=== PATIENT | female | born 1935 | race Native Hawaiian/Other Pacific Islander ===

== ENCOUNTER 2016-09-22 11:46 | Inpatient (IN) | payer MEDICARE, OTHER ==
[2016-09-22] MEDS ORDERED: Sodium Chloride 0.9% 500 ML IV ONE ×2 (12:13→14:12)
--- NOTE | 2016-09-22 12:16 | C.PDOC ---
History Of Present Illness 81 y/o female with PMHx of HTN sent to the emergency department by PMD, Dr. Gus Veliz, for evaluation of n/v/d, diffuse abdominal pain, and generalized weakness for the past 3 days. Patient denies fever/chills, chest pain, shortness of breath, dysuria/hematuria, back pain. Time Seen by Provider: 09/22/16 12:01 Chief Complaint (Nursing): Abdominal Pain History Per: Patient History/Exam Limitations: no limitations Onset/Duration Of Symptoms: Days (3) Current Symptoms Are (Timing): Still Present Location Of Pain/Discomfort: Diffuse Radiation Of Pain To:: None Quality Of Discomfort: "Pain" Associated Symptoms: Nausea, Vomiting, Diarrhea. denies: Fever, Chills, Loss Of Appetite, Back Pain, Chest Pain, Constipation, Urinary Symptoms Exacerbating Factors: None Alleviating Factors: None Additional History Per: Patient Abnormal Vaginal Bleeding: No Past Medical History Reviewed: Historical Data, Nursing Documentation, Vital Signs Vital Signs: Last Vital Signs Temp 97.4 F L 09/26/16 15:00 Pulse 89 09/26/16 15:00 Resp 20 09/26/16 15:00 BP 162/89 H 09/26/16 15:00 Pulse Ox 96 10/03/16 16:29 - Medical History PMH: HTN Family History: States: No Known Family Hx - Social History Hx Alcohol Use: No Hx Substance Use: No - Immunization History Hx Tetanus Toxoid Vaccination: No Hx Influenza Vaccination: No Hx Pneumococcal Vaccination: No Review Of Systems Except As Marked, All Systems Reviewed And Found Negative. Constitutional: Negative for: Fever, Chills Cardiovascular: Negative for: Chest Pain, Palpitations Respiratory: Negative for: Cough, Shortness of Breath Gastrointestinal: Positive for: Nausea, Vomiting, Abdominal Pain, Diarrhea. Negative for: Constipation, Hematochezia, Hematemesis Genitourinary: Negative for: Dysuria, Frequency, Hematuria Musculoskeletal: Negative for: Back Pain Physical Exam - Physical Exam Appears: Non-toxic, No Acute Distress, Other (awake, alert, fatigued appearing) Skin: Normal Color, Warm, Dry Head: Normacephalic Eye(s): bilateral: Normal Inspection Oral Mucosa: Dry Neck: Supple Chest: Symmetrical, No Tenderness Cardiovascular: Rhythm Regular Respiratory: Normal Breath Sounds, No Rales, No Rhonchi, No Wheezing Gastrointestinal/Abdominal: Bowel Sounds, Soft, Tenderness (diffuse TTP), No Guarding, No Rebound, Other (obese abdomen. (-)Viera's, (-)Mcburney's) Extremity: Normal ROM Neurological/Psych: Oriented x3 ED Course And Treatment - Laboratory Results Result Diagrams: 09/24/16 06:35 09/25/16 08:14 O2 Sat by Pulse Oximetry: 96 (on RA) Pulse Ox Interpretation: Normal - CT Scan/US Abd Pelvis CT Other Rad Studies (CT/US): Read By Radiologist, Radiology Report Reviewed CT/US Interpretation: Findings: Scattered areas of atelectasis and consolidation in both lungs. Coronary calcifications. No pleural or pericardial effusion. Prominent liver with heterogeneous attenuation. Within the periphery of the right hepatic lobe there is a 2.1 centimeter low- attenuation lesion demonstrating a Hounsfield unit attenuation of -19 suggestive for a possible fat containing lesion. Correlation with multiphasic CT or MR may be helpful for further evaluation if clinically indicated. Gallbladder is preserved. Diminutive spleen. Nodularity of the adrenal glands. Pancreas is preserved. Small hiatal hernia. Mild nonspecific thickening of the proximal stomach. Right kidney: Midpole partially exophytic hypodensity measuring 1.5 centimeters demonstrating a Hounsfield unit attenuation of 26, indeterminate. Left Kidney: No calculi or hydronephrosis. Contrast in the collecting system. Distended urinary bladder. At the left lateral aspect of the urinary bladder there is a lobulated 3.4 centimeter low- attenuation lesion which appears contiguous with the left adnexa suggestive for a left adnexal cyst. Evaluation of the lower abdominal bowel demonstrates an underdistended and or mildly thickened descending colon. Mild thickening of the distal rectum and sigmoid colon, nonspecific. Appendix is within normal limits. Calcification and plaque within the aorta. Few shotty periaortic and mesenteric lymph nodes. Few shotty mesenteric lymph nodes. Degenerative changes in the spine. 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 Impression: 1. Mild underdistention and or mild thickening of the descending colon, distal sigmoid colon, and rectum. Clinical correlation. 2. Within the periphery of the right hepatic lobe there is a 2.1 centimeter low- attenuation lesion demonstrating a Hounsfield unit attenuation of -19 suggestive for a possible fat containing lesion. Correlation with multiphasic CT or MR may be helpful for further evaluation if clinically indicated. 3. Small hiatal hernia. Mild nonspecific thickening of the proximal stomach. 4. 3.4 centimeter left adnexal cyst. Additional findings as above. Progress Note: Blood work, CT abd/pelvis, UA ordered and reviewed. Patient given IV NS bolus. Na noted to be 111, after IV fluids - improving at 113. Discussed patient with Dr. Smith at 2pm, he recommends IV fluids and get serum osm, will follow lab but at this time since patient had no seizures, is awake and alert patient can go to telemetry. 3:35pm- CT scan not officially read, but appears to have very distended bladder. Bladder scan ordered and if retaining, will insert guillory catheter. 4:20pm- Dr. Gus Veliz agrees with admission, would like patient to ICU. Dr. Smith accepts for ICU admission - CT abd/pelvis and serum osm still pending. - Physician Consult Information Physician Contacted: Scott Veliz Critical Care Time - Critical Care Note Total Time (in mins): 40 Documented critical care: time excludes all time spent performing seperately billable procedures. Disposition - Disposition Disposition Time: 16:20 Condition: FAIR - Clinical Impression Clinical Impression: Hyponatremia, Hypokalemia, Dehydration, Nausea & vomiting, Diarrhea - Scribe Statement The provider has reviewed the documentation as recorded by the Emilia Veliz Provider Attestation: All medical record entries made by the Emilia were at my direction and personally dictated by me. I have reviewed the chart and agree that the record accurately reflects my personal performance of the history, physical exam, medical decision making, and the department course for this patient. I have also personally directed, reviewed, and agree with the discharge instructions and disposition. Decision To Admit - Pt Status Changed To: Hospital Disposition Of: Inpatient - Admit Certification Admit to Inpatient:: After my assessment, the patient will require hospitalization for at least two midnights. This is because of the severity of symptoms shown, intensity of services needed, and/or the medical risk in this patient being treated as an outpatient. - InPatient: Physician Admission Certification:: see notes - . Bed Request Type: ICU Admitting Physician: Scott Veliz Patient Diagnosis: Hyponatremia, Hypokalemia, Dehydration, Nausea & vomiting, Diarrhea
[2016-09-22] MEDS ORDERED: Sodium Chloride 0.9% 1,000 ML ONE ×2 (12:21→14:28)
[2016-09-22] MEDS ORDERED: Iohexol 240 (50 ml) PO STA (12:37)
[2016-09-22] MEDS ORDERED: Sodium Chloride 0.9% 1,000 ML IV ONE (12:37)
[2016-09-22 12:42] LABS: BASO % 0.1 % (0.0-2.0); EOS % 0.1 % (0.0-4.0); HEMATOCRIT 34.1 % (34.0-47.0); LYMPH # 1.3 K/uL (1.0-4.3); LYMPH % 11.1 % (20.0-40.0); MEAN PLATELET VOLUME 7.3 fL (7.2-11.7); MONO # 0.6 K/uL (0.0-0.8); MONO % 5.2 % (0.0-10.0); RED CELL DISTRIBUTION WIDTH 12.1 % (11.5-14.5); WHITE BLOOD COUNT 11.5 K/uL (4.8-10.8)
[2016-09-22 12:48] LABS: CHLORIDE 67 mmol/L (98-107); POTASSIUM 2.7 mmol/L (3.6-5.2)
[2016-09-22 12:50] LABS: BILIRUBIN,TOTAL 1.1 mg/dL (0.2-1.3); CARBON DIOXIDE 29 mmol/L (22-30); GFR AFRICAN-AMERICAN > 60
[2016-09-22 12:51] LABS: ALB/GLOB RATIO 1.5 (1.0-2.1); ALKALINE PHOSPHATASE 66 U/L (38-126); ALT/SGPT 48 U/L (9-52); AST/SGOT 85 U/L (14-36); BLOOD UREA NITROGEN 8 mg/dL (7-17); CALCIUM 8.7 mg/dl (8.6-10.4); GLUCOSE,RANDOM 155 mg/dL (65-105); TOTAL PROTEIN 7.8 g/dL (6.3-8.3)
[2016-09-22 13:01] LABS: SODIUM 111 mmol/L (132-148)
[2016-09-22 13:02] LABS: MEAN CELL VOLUME 84.5 fL (81.0-99.0); MEAN CORPUSCULAR HEMOGLOBIN 30.4 pg (27.0-31.0)
[2016-09-22] MEDS ORDERED: Iohexol 240 (50 ml) ONE (13:20)
--- NOTE | 2016-09-22 13:38 | RAD ---
PROCEDURE: CHEST RADIOGRAPH, 1 VIEW HISTORY: admission COMPARISON: None available. FINDINGS: LUNGS: Mild venous congestion. Scattered nodular densities in the upper to mid lung zones which may represent nodules and or granulomas. Correlation with prior study if available may be helpful. Minimal patchy bibasilar airspace opacities; left greater than right. PLEURA: No pneumothorax or pleural fluid seen. CARDIOVASCULAR: Tortuous aorta. OSSEOUS STRUCTURES: Degenerative changes in the spine and shoulders. VISUALIZED UPPER ABDOMEN: Normal. OTHER FINDINGS: None. IMPRESSION: Mild venous congestion. Scattered nodular densities in the upper to mid lung zones which may represent nodules and or granulomas. Correlation with prior study if available may be helpful. Minimal patchy bibasilar airspace opacities; left greater than right.
[2016-09-22 13:48] LABS: CHLORIDE 73 mmol/L (98-107)
[2016-09-22 13:51] LABS: CARBON DIOXIDE 28 mmol/L (22-30); GFR AFRICAN-AMERICAN > 60; POTASSIUM 2.3 mmol/L (3.6-5.2); SODIUM 113 mmol/L (132-148)
[2016-09-22 13:52] LABS: BLOOD UREA NITROGEN 6 mg/dL (7-17); CALCIUM 7.7 mg/dl (8.6-10.4); GLUCOSE,RANDOM 122 mg/dL (65-105)
[2016-09-22 14:09] LABS: RBC URINE 3 /hpf (0-3); URINE BACTERIA RARE (<OCC); URINE BILIRUBIN NEGATIVE (NEGATIVE); URINE BLOOD 1+ (NEGATIVE); URINE COLOR Straw (YELLOW); URINE GLUCOSE (UA) NORMAL (Normal); URINE KETONE TRACE mg/dL (NEGATIVE); URINE LEUKOCYTE ESTERASE 3+ Leu/uL (Negative); URINE PROTEIN NEGATIVE (NEGATIVE); URINE UROBILINOGEN NORMAL mg/dL (0.2-1.0); WBC URINE 46 /hpf (0-5)
[2016-09-22] MEDS ORDERED: Potassium Chloride 20 mEq ER Tab PO STA (14:12)
[2016-09-22] MEDS ORDERED: Potassium Chloride 20 mEq ER Tab PO ONE ×2 (14:28→18:30)
[2016-09-22] MEDS ORDERED: Potassium Chloride 10 mEq ER Tab PO ONE (14:42)
[2016-09-22] MEDS ORDERED: Iodixanol 320 MG/ML 100 ML BOTTLE IV ONE (15:15)
--- NOTE | 2016-09-22 17:19 | CT ---
CT abdomen and pelvis History: Diffuse abdominal pain. Comparison: None available. Technique: Multiple contiguous axial images were performed through the abdomen and pelvis with the use of intravenous contrast. Subsequently, sagittal and coronal reformatted images were obtained. This CT exam was performed using one or more of the following dose reduction techniques: Automated exposure control, adjustment of the mA and/or kV according to patient size, and/or use of iterative reconstruction technique. Findings: Scattered areas of atelectasis and consolidation in both lungs. Coronary calcifications. No pleural or pericardial effusion. Prominent liver with heterogeneous attenuation. Within the periphery of the right hepatic lobe there is a 2.1 centimeter low-attenuation lesion demonstrating a Hounsfield unit attenuation of -19 suggestive for a possible fat containing lesion. Correlation with multiphasic CT or MR may be helpful for further evaluation if clinically indicated. Gallbladder is preserved. Diminutive spleen. Nodularity of the adrenal glands. Pancreas is preserved. Small hiatal hernia. Mild nonspecific thickening of the proximal stomach. Right kidney: Midpole partially exophytic hypodensity measuring 1.5 centimeters demonstrating a Hounsfield unit attenuation of 26, indeterminate. Left Kidney: No calculi or hydronephrosis. Contrast in the collecting system. Distended urinary bladder. At the left lateral aspect of the urinary bladder there is a lobulated 3.4 centimeter low-attenuation lesion which appears contiguous with the left adnexa suggestive for a left adnexal cyst. Evaluation of the lower abdominal bowel demonstrates an underdistended and or mildly thickened descending colon. Mild thickening of the distal rectum and sigmoid colon, nonspecific. Appendix is within normal limits. Calcification and plaque within the aorta. Few shotty periaortic and mesenteric lymph nodes. Few shotty mesenteric lymph nodes. Degenerative changes in the spine. 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 Impression: 1. Mild underdistention and or mild thickening of the descending colon, distal sigmoid colon, and rectum. Clinical correlation. 2. Within the periphery of the right hepatic lobe there is a 2.1 centimeter low-attenuation lesion demonstrating a Hounsfield unit attenuation of -19 suggestive for a possible fat containing lesion. Correlation with multiphasic CT or MR may be helpful for further evaluation if clinically indicated. 3. Small hiatal hernia. Mild nonspecific thickening of the proximal stomach. 4. 3.4 centimeter left adnexal cyst. Additional findings as above.
--- NOTE | 2016-09-22 18:26 | CP.PCM.CON ---
History of Present Illness - History of Present Illness History of Present Illness: Reason for consultation: Hyponatremia and hypokalemia 81-year-old female with history of hypertension presented to the emergency room complaining of nausea, vomiting, diarrhea and diffuse abdominal pain associated with generalized weakness for the past 3 days. Patient went to see PMD will instructed patient to go to emergency room for admission. In the emergency room patient found to be hyponatremic and hypokalemic. Review of Systems - Review of Systems All systems: reviewed and no additional remarkable complaints except ( Generalized weakness, nausea or vomiting diarrhea and abdominal pain) Past Patient History - Infectious Disease Hx of Infectious Diseases: None - Past Social History Smoking Status: Never Smoked - CARDIAC Hx Hypertension: Yes - PSYCHIATRIC Hx Substance Use: No - SURGICAL HISTORY Hx Surgeries: No - ANESTHESIA Hx Anesthesia: No Meds Allergies/Adverse Reactions: Allergies Allergy/AdvReac Type Severity Reaction Status Date / Time No Known Allergies Allergy Verified 09/22/16 12:00 - Medications Medications: Current Medications Potassium Chloride (K-Dur 20 Meq Er Tab) 40 meq PO ONCE ONE Stop: 09/22/16 18:31 Physical Exam - Head Exam Head Exam: ATRAUMATIC, NORMOCEPHALIC - Eye Exam Eye Exam: Normal appearance - ENT Exam ENT Exam: Mucous Membranes Dry - Neck Exam Neck exam: Positive for: Normal Inspection - Respiratory Exam Respiratory Exam: Clear to Auscultation Bilateral - Cardiovascular Exam Cardiovascular Exam: REGULAR RHYTHM - GI/Abdominal Exam GI & Abdominal Exam: Normal Bowel Sounds, Soft - Extremities Exam Extremities exam: Positive for: normal inspection - Neurological Exam Neurological exam: Alert, Oriented x3 Results - Vital Signs Recent Vital Signs: Last Vital Signs Temp 99.3 F 09/22/16 16:48 Pulse 82 09/22/16 16:48 Resp 18 09/22/16 16:48 BP 154/73 H 09/22/16 16:48 Pulse Ox 96 09/22/16 17:42 - Labs Result Diagrams: 09/22/16 12:36 09/22/16 13:37 Assessment & Plan (1) Hyponatremia with decreased serum osmolality Status: Acute Comment: Hyponatremia with decreased serum osmolality most likely secondary to vomiting and diarrhea/dehydration. Continue normal saline and follow-up sodium level. Potassium supplement (2) Hypokalemia Status: Acute
[2016-09-22] MEDS ORDERED: Sodium Chloride 0.9% 1,000 ML IV SCH (18:30)
[2016-09-22 19:19] LABS: CHLORIDE 84 mmol/L (98-107); POTASSIUM 2.9 mmol/L (3.6-5.2); SODIUM 122 mmol/L (132-148)
[2016-09-22 19:22] LABS: CARBON DIOXIDE 28 mmol/L (22-30); GFR AFRICAN-AMERICAN > 60
[2016-09-22 19:23] LABS: BLOOD UREA NITROGEN 6 mg/dL (7-17); CALCIUM 8.1 mg/dl (8.6-10.4); GLUCOSE,RANDOM 113 mg/dL (65-105)
[2016-09-22 22:56] LABS: CHLORIDE 91 mmol/L (98-107); POTASSIUM 3.2 mmol/L (3.6-5.2); SODIUM 127 mmol/L (132-148)
[2016-09-22 22:59] LABS: BLOOD UREA NITROGEN 5 mg/dL (7-17); CALCIUM 8.4 mg/dl (8.6-10.4); CARBON DIOXIDE 28 mmol/L (22-30); GFR AFRICAN-AMERICAN > 60; GLUCOSE,RANDOM 104 mg/dL (65-105)
[2016-09-23] MEDS ORDERED: Sodium Chloride 0.9% 1,000 ML IV SCH (05:29)
[2016-09-23 06:27] LABS: BASO % 0.3 % (0.0-2.0); EOS % 0.3 % (0.0-4.0); LYMPH # 1.6 K/uL (1.0-4.3); LYMPH % 16.7 % (20.0-40.0); MEAN CELL VOLUME 86.4 fL (81.0-99.0); MEAN CORPUSCULAR HEMOGLOBIN 30.2 pg (27.0-31.0); MEAN CORPUSCULAR HGB CONC 34.9 g/dL (33.0-37.0); MEAN PLATELET VOLUME 7.5 fL (7.2-11.7); MONO # 0.9 K/uL (0.0-0.8); MONO % 8.9 % (0.0-10.0); RED CELL DISTRIBUTION WIDTH 12.3 % (11.5-14.5); WHITE BLOOD COUNT 9.7 K/uL (4.8-10.8)
[2016-09-23 06:43] LABS: CHLORIDE 96 mmol/L (98-107)
[2016-09-23 06:44] LABS: POTASSIUM 3.1 mmol/L (3.6-5.2); SODIUM 131 mmol/L (132-148)
[2016-09-23 06:46] LABS: GFR AFRICAN-AMERICAN > 60
[2016-09-23 06:47] LABS: ALB/GLOB RATIO 1.3 (1.0-2.1); ALKALINE PHOSPHATASE 60 U/L (38-126); ALT/SGPT 49 U/L (9-52); AST/SGOT 66 U/L (14-36); BILIRUBIN,TOTAL 0.6 mg/dL (0.2-1.3); BLOOD UREA NITROGEN 5 mg/dL (7-17); CARBON DIOXIDE 26 mmol/L (22-30); GLUCOSE,RANDOM 94 mg/dL (65-105); TOTAL PROTEIN 6.8 g/dL (6.3-8.3)
[2016-09-23 06:48] LABS: CALCIUM 8.4 mg/dl (8.6-10.4); MAGNESIUM 2.3 mg/dL (1.6-2.3)
[2016-09-23] MEDS ORDERED: Potassium Phosphate 15 MMOLE in Dextrose 5% In Water 250 ML IVPB ONE (08:08)
[2016-09-23] MEDS ORDERED: Sodium Phosphate 15 MMOLE in Dextrose 5% In Water 250 ML IV ONE (08:30)
[2016-09-23] MEDS ORDERED: Sodium Chloride 0.45% 1,000 ML IV SCH (10:18)
[2016-09-23 14:34] LABS: CHLORIDE 94 mmol/L (98-107); POTASSIUM 2.9 mmol/L (3.6-5.2); SODIUM 130 mmol/L (132-148)
[2016-09-23 14:36] LABS: ALB/GLOB RATIO 1.4 (1.0-2.1); ALKALINE PHOSPHATASE 58 U/L (38-126); ALT/SGPT 44 U/L (9-52); AST/SGOT 54 U/L (14-36); BILIRUBIN,TOTAL 0.7 mg/dL (0.2-1.3); BLOOD UREA NITROGEN 5 mg/dL (7-17); CARBON DIOXIDE 27 mmol/L (22-30); GFR AFRICAN-AMERICAN > 60; GLUCOSE,RANDOM 92 mg/dL (65-105); TOTAL PROTEIN 6.8 g/dL (6.3-8.3)
[2016-09-23 14:37] LABS: CALCIUM 8.2 mg/dl (8.6-10.4)
[2016-09-23] MEDS ORDERED: Potassium Chloride 20 mEq/15 ml LIQ UD PO ONE (14:44)
--- NOTE | 2016-09-23 14:59 | CP.PCM.HP ---
Past Patient History - Infectious Disease Hx of Infectious Diseases: None - Past Medical History & Family History Past Medical History?: Yes - Past Social History Smoking Status: Never Smoked - CARDIAC Hx Hypertension: Yes - PULMONARY Hx Respiratory Disorders: No - NEUROLOGICAL Hx Neurological Disorder: No - HEENT Hx HEENT Problems: No - RENAL Hx Chronic Kidney Disease: No - ENDOCRINE/METABOLIC Hx Endocrine Disorders: No - HEMATOLOGICAL/ONCOLOGICAL Hx Blood Disorders: No - INTEGUMENTARY Hx Dermatological Problems: No - MUSCULOSKELETAL/RHEUMATOLOGICAL Hx Musculoskeletal Disorders: No Hx Falls: No - GASTROINTESTINAL Hx Gastrointestinal Disorders: No - GENITOURINARY/GYNECOLOGICAL Hx Genitourinary Disorders: No - PSYCHIATRIC Hx Substance Use: No - SURGICAL HISTORY Hx Surgeries: No - ANESTHESIA Hx Anesthesia: No Meds Allergies/Adverse Reactions: Allergies Allergy/AdvReac Type Severity Reaction Status Date / Time No Known Allergies Allergy Verified 09/22/16 12:00 Physical Exam - Constitutional Appears: Well - Head Exam Head Exam: ATRAUMATIC, NORMAL INSPECTION, NORMOCEPHALIC - Eye Exam Eye Exam: EOMI, Normal appearance, PERRL Pupil Exam: NORMAL ACCOMODATION, PERRL - ENT Exam ENT Exam: Mucous Membranes Moist, Normal Exam - Neck Exam Neck exam: Positive for: Normal Inspection - Respiratory Exam Respiratory Exam: Decreased Breath Sounds - Cardiovascular Exam Cardiovascular Exam: REGULAR RHYTHM, +S1, +S2 - GI/Abdominal Exam GI & Abdominal Exam: Diminished Bowel Sounds, Soft - Rectal Exam Rectal Exam: Deferred Results - Vital Signs Recent Vital Signs: Last Vital Signs Temp 98 F 09/23/16 12:00 Pulse 74 09/23/16 14:00 Resp 20 09/23/16 14:00 BP 128/71 09/23/16 14:00 Pulse Ox 98 09/23/16 14:00 - Labs Result Diagrams: 09/24/16 06:35 09/25/16 08:14 Labs: Laboratory Results - last 24 hr 09/22/16 09/22/16 09/22/16 19:08 19:08 22:44 WBC RBC Hgb Hct MCV MCH MCHC RDW Plt Count MPV Neut % (Auto) Lymph % (Auto) [place] % (Auto) Eos % (Auto) Baso % (Auto) Neut # Lymph # [place] # Eos # Baso # Sodium 122 L 127 L Potassium 2.9 L 3.2 L Chloride 84 L 91 L Carbon Dioxide 28 28 Anion Gap 12 11 BUN 6 L 5 L Creatinine 0.6 L 0.6 L Est GFR ( Amer) > 60 > 60 Est GFR (Non-Af Amer) > 60 > 60 Random Glucose 113 H 104 Calcium 8.1 L 8.4 L Phosphorus Magnesium Total Bilirubin AST ALT Alkaline Phosphatase Total Protein Albumin Globulin Albumin/Globulin Ratio Ur Random Sodium 18 09/23/16 09/23/16 09/23/16 06:17 06:17 14:22 WBC 9.7 RBC 3.93 Hgb 11.9 Hct 34.0 MCV 86.4 MCH 30.2 MCHC 34.9 RDW 12.3 Plt Count 268 MPV 7.5 Neut % (Auto) 73.8 Lymph % (Auto) 16.7 L [place] % (Auto) 8.9 Eos % (Auto) 0.3 Baso % (Auto) 0.3 Neut # 7.2 H Lymph # 1.6 [place] # 0.9 H Eos # 0.0 Baso # 0.0 Sodium 131 L 130 L Potassium 3.1 L 2.9 L Chloride 96 L 94 L Carbon Dioxide 26 27 Anion Gap 12 12 BUN 5 L 5 L Creatinine 0.6 L 0.6 L Est GFR ( Amer) > 60 > 60 Est GFR (Non-Af Amer) > 60 > 60 Random Glucose 94 92 Calcium 8.4 L 8.2 L Phosphorus 1.0 L* 2.0 L Magnesium 2.3 Total Bilirubin 0.6 0.7 AST 66 H D 54 H ALT 49 44 Alkaline Phosphatase 60 58 Total Protein 6.8 6.8 Albumin 3.8 3.9 Globulin 2.9 2.9 Albumin/Globulin Ratio 1.3 1.4 Ur Random Sodium
[2016-09-23] MEDS: Potassium Chloride 20 mEq ER Tab PO SCH ×2 (15:22→19:48)
[2016-09-23] MEDS: Pantoprazole 40 mg EC Tab PO SCH (17:21)
[2016-09-23] MEDS ORDERED: Potassium Chloride 20 mEq ER Tab PO ONE (18:00)
--- NOTE | 2016-09-23 18:53 | CP.CCUPN ---
CCU Subjective - Physician Review Events Since Last Encounter (Free Text): 09/23/16 18:51 Is a 81-year-old female with history of hypertension, was taking multiple medication. Patient admitted to the hospital with the weakness, diarrhea and vomiting. Patient was noted to be hyponatremic and hypokalemia. Weakness noted. Patient currently feeling slightly better, no nausea vomiting currently. Denies any chest pain. Rockwell catheter in place. Urine output is good at this time CCU Objective - Vital Signs / Intake & Output Vital Signs (Last 4 hours): Vital Signs Temp Pulse Resp BP Pulse Ox 09/23/16 18:00 76 19 143/80 100 09/23/16 17:00 81 18 162/72 H 100 09/23/16 16:00 98 F 80 18 145/72 100 09/23/16 15:00 87 20 154/87 H 99 Intake and Output (Last 8hrs): Intake & Output 09/23/16 09/23/16 09/23/16 06:59 14:59 22:59 Intake Total 625 705.0 600 Output Total 2664 760 390 Balance -2039 -55.0 210 Weight 143 lb 9 oz Intake: Intake, IV Amount 625 705.0 500 Left Antecubital 625 705.0 500 Oral 100 Output: Urine 2664 760 390 Urethral (Rockwell) 2664 760 390 Other: # Bowel Movements 1 - Physical Exam Narrative Physical Exam (Free Text): 09/23/16 18:52 Vital signs reviewed No neck vein distention noted Chest good air entry bilaterally, no wheezing or rales noted CVS regular heart sound, no murmur noted Abdomen soft, nontender. Extremities no pedal edema CAUL PULLER alert awake oriented 3, no functional neurological deficit - Medications Active Medications: Active Medications Generic Name Dose Route Start Last Admin Trade Name Freq PRN Reason Stop Dose Admin Heparin Sodium (Porcine) 5,000 units 09/22/16 22:00 09/23/16 11:00 Heparin SC 5,000 units Q12H LEIGH ANN Administration Ceftriaxone Sodium 1 gm/ 100 mls @ 100 mls/hr 09/22/16 23:00 09/22/16 23:00 Sodium Chloride IVPB 100 mls/hr Q24H LEIGH ANN Administration Sodium Chloride 1,000 mls @ 75 mls/hr 09/23/16 10:18 09/23/16 11:45 Sodium Chloride 0.45% IV 75 mls/hr .[id number] LEIGH ANN Administration Potassium Chloride 20 meq in 100 mls @ 50 mls/hr 09/23/16 16:00 09/23/16 17: 21 Potassium Chloride 20 Meq/100 Ml IVPB 09/23/16 19:59 50 mls/hr Q2 LEIGH ANN Administration Pantoprazole Sodium 40 mg 09/23/16 16:45 09/23/16 17:21 Protonix Ec Tab PO 40 mg DAILY LEIGH ANN Administration Pneumococcal Polyvalent Vaccine 0.5 ml 09/24/16 10:00 Pneumovax 23 Vaccine IM 09/24/16 10:01 .ONCE ONE Potassium Chloride 40 meq 09/23/16 16:00 09/23/16 15:22 K-Dur 20 Meq Er Tab PO 09/23/16 20:01 40 meq Q4 LEIGH ANN Administration - Patient Studies Lab Studies: Lab Studies 09/23/16 09/23/16 09/23/16 Range/Units 14:22 06:17 06:17 WBC 9.7 (4.8-10.8) K/uL RBC 3.93 (3.80-5.20) Mil/uL Hgb 11.9 (11.0-16.0) g/dL Hct 34.0 (34.0-47.0) % MCV 86.4 (81.0-99.0) fL MCH 30.2 (27.0-31.0) pg MCHC 34.9 (33.0-37.0) g/dL RDW 12.3 (11.5-14.5) % Plt Count 268 (130-400) K/uL MPV 7.5 (7.2-11.7) fL Neut % (Auto) 73.8 (50.0-75.0) % Lymph % (Auto) 16.7 L (20.0-40.0) % [place] % (Auto) 8.9 (0.0-10.0) % Eos % (Auto) 0.3 (0.0-4.0) % Baso % (Auto) 0.3 (0.0-2.0) % Neut # 7.2 H (1.8-7.0) K/uL Lymph # 1.6 (1.0-4.3) K/uL [place] # 0.9 H (0.0-0.8) K/uL Eos # 0.0 (0.0-0.7) K/uL Baso # 0.0 (0.0-0.2) K/uL Sodium 130 L 131 L (132-148) mmol/L Potassium 2.9 L 3.1 L (3.6-5.2) mmol/L Chloride 94 L 96 L (98-107) mmol/L Carbon Dioxide 27 26 (22-30) mmol/L Anion Gap 12 12 (10-20) BUN 5 L 5 L (7-17) mg/dL Creatinine 0.6 L 0.6 L (0.7-1.2) MG/DL Est GFR ( Amer) > 60 > 60 Est GFR (Non-Af Amer) > 60 > 60 Random Glucose 92 94 (65-105) mg/dL Calcium 8.2 L 8.4 L (8.6-10.4) mg/dl Phosphorus 2.0 L 1.0 L* (2.5-4.5) mg/dL Magnesium 2.3 (1.6-2.3) mg/dL Total Bilirubin 0.7 0.6 (0.2-1.3) mg/dL AST 54 H 66 H D (14-36) U/L ALT 44 49 (9-52) U/L Alkaline Phosphatase 58 60 (38-126) U/L Total Protein 6.8 6.8 (6.3-8.3) g/dL Albumin 3.9 3.8 (3.5-5.0) g/dL Globulin 2.9 2.9 (2.2-3.9) gm/dL Albumin/Globulin Ratio 1.4 1.3 (1.0-2.1) Ur Random Sodium mmol/L 09/22/16 09/22/16 09/22/16 Range/Units 22:44 19:08 19:08 WBC (4.8-10.8) K/uL RBC (3.80-5.20) Mil/uL Hgb (11.0-16.0) g/dL Hct (34.0-47.0) % MCV (81.0-99.0) fL MCH (27.0-31.0) pg MCHC (33.0-37.0) g/dL RDW (11.5-14.5) % Plt Count (130-400) K/uL MPV (7.2-11.7) fL Neut % (Auto) (50.0-75.0) % Lymph % (Auto) (20.0-40.0) % [place] % (Auto) (0.0-10.0) % Eos % (Auto) (0.0-4.0) % Baso % (Auto) (0.0-2.0) % Neut # (1.8-7.0) K/uL Lymph # (1.0-4.3) K/uL [place] # (0.0-0.8) K/uL Eos # (0.0-0.7) K/uL Baso # (0.0-0.2) K/uL Sodium 127 L 122 L (132-148) mmol/L Potassium 3.2 L 2.9 L (3.6-5.2) mmol/L Chloride 91 L 84 L (98-107) mmol/L Carbon Dioxide 28 28 (22-30) mmol/L Anion Gap 11 12 (10-20) BUN 5 L 6 L (7-17) mg/dL Creatinine 0.6 L 0.6 L (0.7-1.2) MG/DL Est GFR ( Amer) > 60 > 60 Est GFR (Non-Af Amer) > 60 > 60 Random Glucose 104 113 H (65-105) mg/dL Calcium 8.4 L 8.1 L (8.6-10.4) mg/dl Phosphorus (2.5-4.5) mg/dL Magnesium (1.6-2.3) mg/dL Total Bilirubin (0.2-1.3) mg/dL AST (14-36) U/L ALT (9-52) U/L Alkaline Phosphatase (38-126) U/L Total Protein (6.3-8.3) g/dL Albumin (3.5-5.0) g/dL Globulin (2.2-3.9) gm/dL Albumin/Globulin Ratio (1.0-2.1) Ur Random Sodium 18 mmol/L Laboratory Results - last 24 hr 09/22/16 09/22/16 09/22/16 19:08 19:08 22:44 WBC RBC Hgb Hct MCV MCH MCHC RDW Plt Count MPV Neut % (Auto) Lymph % (Auto) [place] % (Auto) Eos % (Auto) Baso % (Auto) Neut # Lymph # [place] # Eos # Baso # Sodium 122 L 127 L Potassium 2.9 L 3.2 L Chloride 84 L 91 L Carbon Dioxide 28 28 Anion Gap 12 11 BUN 6 L 5 L Creatinine 0.6 L 0.6 L Est GFR ( Amer) > 60 > 60 Est GFR (Non-Af Amer) > 60 > 60 Random Glucose 113 H 104 Calcium 8.1 L 8.4 L Phosphorus Magnesium Total Bilirubin AST ALT Alkaline Phosphatase Total Protein Albumin Globulin Albumin/Globulin Ratio Ur Random Sodium 18 09/23/16 09/23/16 09/23/16 06:17 06:17 14:22 WBC 9.7 RBC 3.93 Hgb 11.9 Hct 34.0 MCV 86.4 MCH 30.2 MCHC 34.9 RDW 12.3 Plt Count 268 MPV 7.5 Neut % (Auto) 73.8 Lymph % (Auto) 16.7 L [place] % (Auto) 8.9 Eos % (Auto) 0.3 Baso % (Auto) 0.3 Neut # 7.2 H Lymph # 1.6 [place] # 0.9 H Eos # 0.0 Baso # 0.0 Sodium 131 L 130 L Potassium 3.1 L 2.9 L Chloride 96 L 94 L Carbon Dioxide 26 27 Anion Gap 12 12 BUN 5 L 5 L Creatinine 0.6 L 0.6 L Est GFR ( Amer) > 60 > 60 Est GFR (Non-Af Amer) > 60 > 60 Random Glucose 94 92 Calcium 8.4 L 8.2 L Phosphorus 1.0 L* 2.0 L Magnesium 2.3 Total Bilirubin 0.6 0.7 AST 66 H D 54 H ALT 49 44 Alkaline Phosphatase 60 58 Total Protein 6.8 6.8 Albumin 3.8 3.9 Globulin 2.9 2.9 Albumin/Globulin Ratio 1.3 1.4 Ur Random Sodium Review of Systems - Review of Systems All systems: reviewed and no additional remarkable complaints except Review of Systems: Weakness noted. Denies any nausea vomiting. Alert and oriented Critical Care Progress Note - Nutrition Nutrition: Nutrition Category Date Time Status Liquid Diet [DIET] Diets 09/23/16 Lunch Active Assessment/Plan (1) Hypokalemia Current Visit: Yes Status: Acute (2) Hyponatremia with decreased serum osmolality Assessment and plan: Patient developed hypernatremia. Most likely secondary to diabetes. Patient also has a gastroenteritis. CT scan of the abdomen and pelvis showing evidence of gastroenteritis. But clinical patient is improving. We'll monitor the sodium level. Currently receiving hypo we'll monitor the sodium level again tonic saline at this time. Sodium level is appropriately improving. Current Visit: Yes Status: Acute (3) Dehydration Current Visit: Yes Status: Acute
[2016-09-23 21:20] LABS: CHLORIDE 97 mmol/L (98-107)
[2016-09-23 21:21] LABS: POTASSIUM 4.1 mmol/L (3.6-5.2); SODIUM 130 mmol/L (132-148)
[2016-09-23 21:23] LABS: GFR AFRICAN-AMERICAN > 60
[2016-09-23 21:24] LABS: ALB/GLOB RATIO 1.3 (1.0-2.1); ALKALINE PHOSPHATASE 60 U/L (38-126); ALT/SGPT 50 U/L (9-52); AST/SGOT 53 U/L (14-36); BILIRUBIN,TOTAL 0.6 mg/dL (0.2-1.3); BLOOD UREA NITROGEN 4 mg/dL (7-17); CARBON DIOXIDE 24 mmol/L (22-30); GLUCOSE,RANDOM 93 mg/dL (65-105); TOTAL PROTEIN 6.8 g/dL (6.3-8.3)
[2016-09-23 22:22] LABS: MAGNESIUM 2.2 mg/dL (1.6-2.3); PHOSPHOROUS 1.2 mg/dL (2.5-4.5)
[2016-09-23] MEDS ORDERED: Sodium Phosphate 45 MMOLE in Sodium Chloride 0.9% 250 ML IVPB ONE (22:37)
[2016-09-23] MEDS ORDERED: Sodium Phosphate 45 MMOLE in Sodium Chloride 0.9% 500 ML IVPB ONE (22:45)
--- NOTE | 2016-09-24 00:11 | CP.PCM.CON ---
History of Present Illness - History of Present Illness History of Present Illness: Patient admitted for chest pain Abnormal EKG Stress test in am Past Patient History - Infectious Disease Hx of Infectious Diseases: None - Past Medical History & Family History Past Medical History?: Yes - Past Social History Smoking Status: Never Smoked - CARDIAC Hx Hypertension: Yes - PULMONARY Hx Respiratory Disorders: No - NEUROLOGICAL Hx Neurological Disorder: No - HEENT Hx HEENT Problems: No - RENAL Hx Chronic Kidney Disease: No - ENDOCRINE/METABOLIC Hx Endocrine Disorders: No - HEMATOLOGICAL/ONCOLOGICAL Hx Blood Disorders: No - INTEGUMENTARY Hx Dermatological Problems: No - MUSCULOSKELETAL/RHEUMATOLOGICAL Hx Musculoskeletal Disorders: No Hx Falls: No - GASTROINTESTINAL Hx Gastrointestinal Disorders: No - GENITOURINARY/GYNECOLOGICAL Hx Genitourinary Disorders: No - PSYCHIATRIC Hx Substance Use: No - SURGICAL HISTORY Hx Surgeries: No - ANESTHESIA Hx Anesthesia: No Meds Allergies/Adverse Reactions: Allergies Allergy/AdvReac Type Severity Reaction Status Date / Time No Known Allergies Allergy Verified 09/22/16 12:00 - Medications Medications: Current Medications Heparin Sodium (Porcine) (Heparin) 5,000 units SC Q12H [facility] Last Admin: 09/23/16 21:57 Dose: 5,000 units Ceftriaxone Sodium 1 gm/ (Sodium Chloride) 100 mls @ 100 mls/hr IVPB Q24H [facility] Last Admin: 09/22/16 23:00 Dose: 100 mls/hr Sodium Phosphate 45 mmole/ (Sodium Chloride) 515 mls @ 85.833 mls/hr IVPB .Q6H ONE Stop: 09/24/16 04:44 Last Admin: 09/23/16 22:51 Dose: 85.833 mls/hr Pantoprazole Sodium (Protonix Ec Tab) 40 mg PO DAILY [facility] Last Admin: 09/23/16 17:21 Dose: 40 mg Pneumococcal Polyvalent Vaccine (Pneumovax 23 Vaccine) 0.5 ml IM .ONCE ONE Stop: 09/24/16 10:01 Results - Vital Signs Recent Vital Signs: Last Vital Signs Temp 98.7 F 09/23/16 20:00 Pulse 78 09/23/16 23:50 Resp 16 09/23/16 23:50 BP 130/71 09/23/16 23:44 Pulse Ox 100 09/23/16 23:50 - Labs Result Diagrams: 09/23/16 06:17 09/23/16 21:06 Labs: Laboratory Results - last 24 hr 09/23/16 09/23/16 09/23/16 06:17 06:17 14:22 WBC 9.7 RBC 3.93 Hgb 11.9 Hct 34.0 MCV 86.4 MCH 30.2 MCHC 34.9 RDW 12.3 Plt Count 268 MPV 7.5 Neut % (Auto) 73.8 Lymph % (Auto) 16.7 L [place] % (Auto) 8.9 Eos % (Auto) 0.3 Baso % (Auto) 0.3 Neut # 7.2 H Lymph # 1.6 [place] # 0.9 H Eos # 0.0 Baso # 0.0 Sodium 131 L 130 L Potassium 3.1 L 2.9 L Chloride 96 L 94 L Carbon Dioxide 26 27 Anion Gap 12 12 BUN 5 L 5 L Creatinine 0.6 L 0.6 L Est GFR ( Amer) > 60 > 60 Est GFR (Non-Af Amer) > 60 > 60 Random Glucose 94 92 Calcium 8.4 L 8.2 L Phosphorus 1.0 L* 2.0 L Magnesium 2.3 Total Bilirubin 0.6 0.7 AST 66 H D 54 H ALT 49 44 Alkaline Phosphatase 60 58 Total Protein 6.8 6.8 Albumin 3.8 3.9 Globulin 2.9 2.9 Albumin/Globulin Ratio 1.3 1.4 09/23/16 09/23/16 21:06 22:14 WBC RBC Hgb Hct MCV MCH MCHC RDW Plt Count MPV Neut % (Auto) Lymph % (Auto) [place] % (Auto) Eos % (Auto) Baso % (Auto) Neut # Lymph # [place] # Eos # Baso # Sodium 130 L Potassium 4.1 Chloride 97 L Carbon Dioxide 24 Anion Gap 14 BUN 4 L Creatinine 0.6 L Est GFR ( Amer) > 60 Est GFR (Non-Af Amer) > 60 Random Glucose 93 Calcium 8.0 L Phosphorus 1.2 L Magnesium 2.2 Total Bilirubin 0.6 AST 53 H ALT 50 Alkaline Phosphatase 60 Total Protein 6.8 Albumin 3.9 Globulin 2.9 Albumin/Globulin Ratio 1.3
[2016-09-24 06:41] LABS: BASO # 0.1 K/uL (0.0-0.2); BASO % 0.7 % (0.0-2.0); EOS # 0.2 K/uL (0.0-0.7); EOS % 2.5 % (0.0-4.0); HEMATOCRIT 33.9 % (34.0-47.0); LYMPH # 2.4 K/uL (1.0-4.3); MEAN CELL VOLUME 88.4 fL (81.0-99.0); MEAN CORPUSCULAR HEMOGLOBIN 30.4 pg (27.0-31.0); MEAN CORPUSCULAR HGB CONC 34.4 g/dL (33.0-37.0); MEAN PLATELET VOLUME 7.1 fL (7.2-11.7); MONO # 0.6 K/uL (0.0-0.8); NRBC % 0.1 % (0.0-2.0); RED CELL DISTRIBUTION WIDTH 12.3 % (11.5-14.5); WHITE BLOOD COUNT 7.8 K/uL (4.8-10.8)
[2016-09-24 06:49] LABS: CHLORIDE 101 mmol/L (98-107); POTASSIUM 3.2 mmol/L (3.6-5.2); SODIUM 135 mmol/L (132-148)
[2016-09-24 06:51] LABS: ALB/GLOB RATIO 1.3 (1.0-2.1); ALKALINE PHOSPHATASE 46 U/L (38-126); AST/SGOT 42 U/L (14-36); BILIRUBIN,TOTAL 0.5 mg/dL (0.2-1.3); CARBON DIOXIDE 25 mmol/L (22-30); GFR AFRICAN-AMERICAN > 60; TOTAL PROTEIN 5.9 g/dL (6.3-8.3)
[2016-09-24 06:52] LABS: ALT/SGPT 39 U/L (9-52); BLOOD UREA NITROGEN 3 mg/dL (7-17); CALCIUM 7.2 mg/dl (8.6-10.4); GLUCOSE,RANDOM 91 mg/dL (65-105); MAGNESIUM 1.7 mg/dL (1.6-2.3); PHOSPHOROUS 6.8 mg/dL (2.5-4.5)
[2016-09-24] MEDS ORDERED: Pneumococcal 23-Valent Vaccine IM ONE (10:00)
[2016-09-24] MEDS: Pantoprazole 40 mg EC Tab PO SCH (12:24)
--- NOTE | 2016-09-24 14:30 | CARD ---
APPROVED REPORT EKG Measurement Heart [id number] ND [id number] <Conclusion> Normal sinus rhythm Possible Left atrial enlargement ST & T wave abnormality, consider lateral ischemia Abnormal ECG
--- NOTE | 2016-09-24 18:27 | CP.PCM.PN ---
Subjective - Date & Time of Evaluation Date of Evaluation: 09/24/16 Time of Evaluation: 12:40 - Subjective Subjective: dizzyness better Objective - Vital Signs/Intake and Output Vital Signs (last 24 hours): Temp Pulse Resp BP Pulse Ox 98.4 F 86 19 127/65 100 09/24/16 16:00 09/24/16 18:00 09/24/16 18:00 09/24/16 18:00 09/24/16 18:00 Intake and Output: 09/24/16 09/24/16 06:59 18:59 Intake Total 986.4 190 Output Total 1600 Balance -613.6 190 - Medications Medications: Current Medications Heparin Sodium (Porcine) (Heparin) 5,000 units SC Q12H [facility] Last Admin: 09/24/16 12:24 Dose: 5,000 units Ceftriaxone Sodium 1 gm/ (Sodium Chloride) 100 mls @ 100 mls/hr IVPB Q24H [facility] Last Admin: 09/24/16 00:00 Dose: 100 mls/hr Losartan Potassium (Cozaar) 100 mg PO DAILY [facility] Last Admin: 09/24/16 12:24 Dose: 100 mg Pantoprazole Sodium (Protonix Ec Tab) 40 mg PO DAILY [facility] Last Admin: 09/24/16 12:24 Dose: 40 mg - Labs Labs: 09/24/16 06:35 09/24/16 06:35 - Constitutional Appears: Well - Head Exam Head Exam: ATRAUMATIC, NORMAL INSPECTION, NORMOCEPHALIC - Eye Exam Eye Exam: EOMI, Normal appearance, PERRL Pupil Exam: NORMAL ACCOMODATION, PERRL - ENT Exam ENT Exam: Mucous Membranes Moist, Normal Exam - Neck Exam Neck Exam: Full ROM, Normal Inspection. absent: Lymphadenopathy - Respiratory Exam Respiratory Exam: Decreased Breath Sounds - Cardiovascular Exam Cardiovascular Exam: REGULAR RHYTHM, +S1, +S2 - GI/Abdominal Exam GI & Abdominal Exam: Soft, Diminished Bowel Sounds - Rectal Exam Rectal Exam: Deferred Assessment and Plan (1) Dehydration Status: Acute (2) Dizziness Status: Acute (3) Hypertension Status: Acute (4) Hypokalemia Status: Acute (5) Hyponatremia with decreased serum osmolality Status: Acute - Assessment and Plan (Free Text) Plan: cllinically same cardiology dizzyness better s na better no nausea or ovmitting
--- NOTE | 2016-09-24 20:35 | CP.PCM.PN ---
Subjective - Date & Time of Evaluation Date of Evaluation: 09/24/16 Time of Evaluation: 17:00 - Subjective Subjective: Patient seen and evaluated Stress test postponed to tomorrow due to back pain Objective - Vital Signs/Intake and Output Vital Signs (last 24 hours): Temp Pulse Resp BP Pulse Ox 98.4 F 86 19 127/65 100 09/24/16 16:00 09/24/16 18:00 09/24/16 18:00 09/24/16 18:00 09/24/16 18:00 Intake and Output: 09/24/16 09/25/16 18:59 06:59 Intake Total 190 Balance 190 - Medications Medications: Current Medications Heparin Sodium (Porcine) (Heparin) 5,000 units SC Q12H [facility] Last Admin: 09/24/16 12:24 Dose: 5,000 units Ceftriaxone Sodium 1 gm/ (Sodium Chloride) 100 mls @ 100 mls/hr IVPB Q24H [facility] Last Admin: 09/24/16 00:00 Dose: 100 mls/hr Losartan Potassium (Cozaar) 100 mg PO DAILY [facility] Last Admin: 09/24/16 12:24 Dose: 100 mg Pantoprazole Sodium (Protonix Ec Tab) 40 mg PO DAILY [facility] Last Admin: 09/24/16 12:24 Dose: 40 mg - Labs Labs: 09/24/16 06:35 09/24/16 06:35
[2016-09-24] MEDS: Potassium Chloride 20 mEq ER Tab PO SCH (23:18)
[2016-09-25 00:58] VITALS: RESP 20
[2016-09-25] MEDS: Potassium Chloride 20 mEq ER Tab PO SCH (04:23)
[2016-09-25] MEDS ORDERED: Iodixanol 320 MG/ML 100 ML BOTTLE IV ONE (08:00)
[2016-09-25 08:59] LABS: CHLORIDE 99 mmol/L (98-107); SODIUM 134 mmol/L (132-148)
[2016-09-25 09:00] LABS: POTASSIUM 4.5 mmol/L (3.6-5.2)
[2016-09-25 09:02] LABS: GFR AFRICAN-AMERICAN > 60
[2016-09-25 09:03] LABS: BLOOD UREA NITROGEN 7 mg/dL (7-17); CALCIUM 8.6 mg/dl (8.6-10.4); CARBON DIOXIDE 27 mmol/L (22-30); GLUCOSE,RANDOM 92 mg/dL (65-105)
[2016-09-25 10:24] LABS: CHLORIDE URINE 27 mmol/L (32-290)
--- NOTE | 2016-09-25 10:52 | CP.PCM.PN ---
Subjective - Date & Time of Evaluation Date of Evaluation: 09/25/16 Time of Evaluation: 08:00 - Subjective Subjective: clinically same Objective - Vital Signs/Intake and Output Vital Signs (last 24 hours): Temp Pulse Resp BP Pulse Ox 98.1 F 70 20 150/86 98 09/25/16 08:23 09/25/16 08:23 09/25/16 08:23 09/25/16 08:23 09/25/16 08:23 Intake and Output: 09/25/16 09/25/16 06:59 18:59 Intake Total 260 Output Total 100 Balance 160 - Medications Medications: Current Medications Heparin Sodium (Porcine) (Heparin) 5,000 units SC Q12H [facility] Last Admin: 09/24/16 21:42 Dose: 5,000 units Ceftriaxone Sodium 1 gm/ (Sodium Chloride) 100 mls @ 100 mls/hr IVPB Q24H [facility] Last Admin: 09/24/16 23:13 Dose: 100 mls/hr Losartan Potassium (Cozaar) 100 mg PO DAILY [facility] Last Admin: 09/24/16 12:24 Dose: 100 mg Pantoprazole Sodium (Protonix Ec Tab) 40 mg PO DAILY [facility] Last Admin: 09/24/16 12:24 Dose: 40 mg - Labs Labs: 09/24/16 06:35 09/25/16 08:14 - Constitutional Appears: Well - Head Exam Head Exam: ATRAUMATIC, NORMAL INSPECTION, NORMOCEPHALIC - Eye Exam Eye Exam: EOMI, Normal appearance, PERRL Pupil Exam: NORMAL ACCOMODATION, PERRL - ENT Exam ENT Exam: Mucous Membranes Moist, Normal Exam - Respiratory Exam Respiratory Exam: Decreased Breath Sounds - Cardiovascular Exam Cardiovascular Exam: REGULAR RHYTHM, +S1, +S2 - GI/Abdominal Exam GI & Abdominal Exam: Soft, Diminished Bowel Sounds - Rectal Exam Rectal Exam: Deferred Assessment and Plan (1) Dizziness Status: Acute (2) Hypertension Status: Acute (3) Dehydration Status: Acute (4) Hypokalemia Status: Acute (5) Hyponatremia with decreased serum osmolality Status: Acute - Assessment and Plan (Free Text) Plan: stress test discharge planning discussed iwht family vamshi same antivert mx as ordered
--- NOTE | 2016-09-25 10:54 | CARD ---
APPROVED REPORT EXAM: Two-dimensional and M-mode echocardiogram with Doppler and color Doppler. Other Information Quality : AverageRhythm : NSR INDICATION Chest Pain RISK FACTORS Hypertension M-Mode DIMENSIONS RVDd0.83 (2.1-3.2cm)Left Atrium (MM)3.23 (2.5-4.0cm) IVSd1.42 (0.7-1.1cm)Aortic Root2.50 (2.2-3.7cm) LVDd4.75 (4.0-5.6cm)Aortic Cusp Exc.1.87 (1.5-2.0cm) PWd1.35 (0.7-1.1cm)FS (%) 42 % LVDs2.74 (2.0-3.8cm)LVEF (%)73 (>50%) Aortic Valve AoV Peak Gxeqblyd245.1cm/Aury Peak GR.12mmHg Mitral Valve MV E Cflzwohm25.7cm/sMV A Lwfxxhlq473.6cm/sE/A ratio0.7 TDI E/Lateral E'0.0E/Medial E'0.0 Tricuspid Valve TR Peak Apseehai813jr/sTR Peak Gr.[id number] <Conclusion> normal size la,lv & ra rv. moderate degree of lvh with normal lv systolic funciton & wall motion with lvef of about 70-75%. lv diastolic dysfunction grade one. mac. mildly sclerotic trileaflet aortic valve. mild mr,tr with normal pulmonary systolic pressures of 20 mm of hg. normal size aortic root. normal tv & pv. no pericardial effusion.
[2016-09-25] MEDS ORDERED: Iodixanol 320 mg/ml 150 ml Bottle IV ONE (12:08)
[2016-09-25] MEDS: Pantoprazole 40 mg EC Tab PO SCH (12:58)
--- NOTE | 2016-09-25 13:25 | CT ---
PROCEDURE: CT Chest with contrast HISTORY: abn chest x ray COMPARISON: None. TECHNIQUE: Contiguous axial images were obtained through the chest with intravenous contrast enhancement. Sagittal and coronal reconstructions were performed. IV contrast: 100 cc of Omnipaque 320 Radiation dose (DLP): 478 mGy-cm. This CT exam was performed using one or more of the following dose reduction techniques: Automated exposure control, adjustment of the mA and/or kV according to patient size, and/or use of iterative reconstruction technique. FINDINGS: LUNGS: Bilateral calcified nodules are noted with a 1 centimeter nodule in the right upper lobe and 7 millimeter partly calcified nodule in the left upper lobe. An additional calcified nodule measuring roughly 9 millimeters is also noted in the left upper lobe. There are associated adjacent fibrotic changes. Scattered mild bibasilar fibrotic changes are observed. MEDIASTINUM: Unremarkable thoracic aorta. No aneurysm or dissection. Normal sized heart. Main pulmonary artery unremarkable. No vascular congestion. No lymphadenopathy. PLEURA: No pleural fluid. No pneumothorax. BONES: No fracture. No destructive lesion. UPPER ABDOMEN: Grossly unremarkable. OTHER FINDINGS: None. 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 No suspicious adenopathy.
--- NOTE | 2016-09-25 19:23 | CARD ---
APPROVED REPORT Protocol: PHARMACOLOGICAL STRESS Test Type: LEXISCAN Test Indications: DYSPNEA Medications: LIST SCAN Medical History: DYSPNEA Target HR: 141 bpm Resting ECG: normal Resting Heart Rate: 73 bpm Resting Blood Pressure: 148/70mmHg submaximum (85%): 120 bpm TEST SUMMARY [id number]/70.0. INFUSIONDOSE 100:[id number]/70.0. [id number]/70.0. PROCEDURE Pharmacologic stress testing was performed using 0.4mg per 5ml of regadenoson given intravenously over 7-10 seconds. POST EXERCISE Reason for Termination: Lexiscan protocol completed Target HR: No Max HR: 72 bpm 72% of Maximum Predicted HR: 141 bpm Exercise duration: 00:30 min:sec, 0 Stage Exercise capacity: 1.0METs Max Blood Pressure: 150/70mmHg Blood Pressure response to exercise: appropriate Heart Rate response to exercise: appropriate Chest Pain: No, none Angina index: 0 Arrhythmia: No, none ST Change: No, none Deviation: 0 mm INTERPRETATION Stress EKG Conclusion: Nuclear imaging to follow EXAM: Myocardial Perfusion REST/STRESS Imaging Protocol The imaging protocol used to acquire images was Rest Tc-99m/stress Tc-99m 1 day Rest Spect myocardial perfusion imaging was performed in supine position 45 minutes following the injection of 12.9 mCi of Tc-99 Myoview. Gated Stress Spect was performed 45 minutes after intravenous 32.3 mCi Tc-99 Myoview injection. The images were gated to evaluate regional wall motion and calculate ventricular ejection fraction.Images were reconstructed using backfilter projection method in short horizontal and verticle long axis. Spect slices were generated. RESTING DATA EDV41.09xyUW6.90L/min ESV14.00mlMyocardial Mass83.00g Av. Heart Rate70.00bpm EF66.00% STRESS DATA EDV46.07rsAO3.40L/min ESV11.00mlMyocardial Mass90.00g EF76.00% Regional WT score at stress:2.00 Regional WM score at stress:0.00 Summed WT score at stress:4.00 Av. Heart Rate70.00bpmSummed WM score at stress:15.00 LV Perf. Quant 17 Seg. SSS0.00 17 Seg. SRS0.00 17 Seg. SDS0.00 Stress Defect Extent (% LAD)0.00Rest Defect Extent (% LAD)0.00Rev. Defect Extent (% LAD)0.00 Stress Defect Extent (% LCX)0.00Rest Defect Extent (% LCX)5.00Rev. Defect Extent (% LCX)0.00 Stress Defect Extent (% RCA)0.00Rest Defect Extent (% RCA)0.00Rev. Defect Extent (% RCA)0.00 Stress Defect Extent (% GEOFFREY)0.00Rest Defect Extent (% GEOFFREY)0.90Rev. Defect Extent (% GEOFFREY)0.00 Other Information Quality:Good IMPRESSION Normal Myocardial Perfusion exercise stress study Left Ventricle LV Size/Shape: The left ventricle is normal size. LV Function:Left ventricle systolic function is normal. The Ejection Fraction is >70%. Metabolism/Perfusion There are no perfusion/metabolism defects. Conclusion 1. Normal Lexiscan Nuclear stress test. Normal EF
--- NOTE | 2016-09-26 01:50 | CP.PCM.PN ---
Subjective - Date & Time of Evaluation Date of Evaluation: 09/25/16 Time of Evaluation: 18:20 - Subjective Subjective: Patient s/p stress test Normal stress test and normal EF No further cardiac work up Recommend medical management Objective - Vital Signs/Intake and Output Vital Signs (last 24 hours): Temp Pulse Resp BP Pulse Ox 97.2 F L 74 20 158/76 H 98 09/25/16 15:05 09/25/16 15:05 09/25/16 15:05 09/25/16 15:05 09/25/16 15:05 Intake and Output: 09/25/16 09/26/16 18:59 06:59 Intake Total 300 300 Output Total 550 300 Balance -250 0 - Medications Medications: Current Medications Ceftriaxone Sodium 1 gm/ (Sodium Chloride) 100 mls @ 100 mls/hr IVPB Q24H [facility] Last Admin: 09/25/16 22:16 Dose: 100 mls/hr Losartan Potassium (Cozaar) 100 mg PO DAILY [facility] Last Admin: 09/25/16 12:58 Dose: 100 mg Pantoprazole Sodium (Protonix Ec Tab) 40 mg PO DAILY [facility] Last Admin: 09/25/16 12:58 Dose: 40 mg - Labs Labs: 09/24/16 06:35 09/25/16 08:14
[2016-09-26] MEDS: Pantoprazole 40 mg EC Tab PO SCH (11:38)
--- NOTE | 2016-09-26 15:10 | CP.PCM.PN ---
Subjective - Date & Time of Evaluation Date of Evaluation: 09/26/16 Time of Evaluation: 15:10 - Subjective Subjective: Alert, awake, no sob or chest pain, NAD. Objective - Vital Signs/Intake and Output Vital Signs (last 24 hours): Temp Pulse Resp BP Pulse Ox 98.0 F 80 20 159/79 H 98 09/26/16 08:20 09/26/16 08:20 09/26/16 08:20 09/26/16 08:20 09/26/16 08:20 Intake and Output: 09/26/16 09/26/16 06:59 18:59 Intake Total 600 Output Total 300 Balance 300 - Medications Medications: Current Medications Ceftriaxone Sodium 1 gm/ (Sodium Chloride) 100 mls @ 100 mls/hr IVPB Q24H [facility] Last Admin: 09/25/16 22:16 Dose: 100 mls/hr Losartan Potassium (Cozaar) 100 mg PO DAILY [facility] Last Admin: 09/26/16 11:38 Dose: 100 mg Pantoprazole Sodium (Protonix Ec Tab) 40 mg PO DAILY [facility] Last Admin: 09/26/16 11:38 Dose: 40 mg - Labs Labs: 09/24/16 06:35 09/25/16 08:14 Assessment and Plan - Assessment and Plan (Free Text) Assessment: Patient is seen and examined. Denies any sob or chest pains, cleared by DR Montilla , air conditioning mechanic. D/W DR Gus Veliz, plan to discharge home today, advised to follow up in the office in 1 week.
[2016-09-26] MEDS ORDERED: Pneumococcal 23-Valent Vaccine IM ONE (15:30)
[2016-09-26 17:02] VITALS: BP 162/89; PULSE 89; TEMP 97.4
--- NOTE | 2016-09-26 17:52 | CP.PCM.PN ---
Subjective - Date & Time of Evaluation Date of Evaluation: 09/26/16 Time of Evaluation: 09:40 - Subjective Subjective: clinically same Objective - Vital Signs/Intake and Output Vital Signs (last 24 hours): Temp Pulse Resp BP Pulse Ox 97.4 F L 89 20 162/89 H 99 09/26/16 15:00 09/26/16 15:00 09/26/16 15:00 09/26/16 15:00 09/26/16 15:00 Intake and Output: 09/26/16 09/26/16 06:59 18:59 Intake Total 600 Output Total 300 Balance 300 - Labs Labs: 09/24/16 06:35 09/25/16 08:14 - Constitutional Appears: Well - Head Exam Head Exam: ATRAUMATIC, NORMAL INSPECTION, NORMOCEPHALIC - Eye Exam Eye Exam: EOMI, Normal appearance, PERRL Pupil Exam: NORMAL ACCOMODATION, PERRL - ENT Exam ENT Exam: Mucous Membranes Moist, Normal Exam - Neck Exam Neck Exam: Full ROM, Normal Inspection. absent: Lymphadenopathy - Respiratory Exam Respiratory Exam: Decreased Breath Sounds - Cardiovascular Exam Cardiovascular Exam: REGULAR RHYTHM, +S1, +S2 - GI/Abdominal Exam GI & Abdominal Exam: Soft, Diminished Bowel Sounds - Rectal Exam Rectal Exam: Deferred Assessment and Plan (1) Dehydration Status: Acute (2) Dizziness Status: Acute (3) Hypertension Status: Acute (4) Hypokalemia Status: Acute (5) Hyponatremia with decreased serum osmolality Status: Acute
[2016-10-03 16:22] VITALS: O2SAT 96
== END 2016-09-26 17:15 | disposition home or self-care (01) | DRG 641 ==
LOC: C.ER 11:46 → C.9E 16:20 → C.9I 17:07 → C.3T 09-25 00:35
PROVIDERS: ADMIT Internal Medicine; ATTEND Internal Medicine Nephrology
DX: E87.1 Hypo-osmolality and hyponatremia (principal); E86.0 Dehydration; E87.6 Hypokalemia; K52.9 Noninfective gastroenteritis and colitis, unspecified; I10 Essential (primary) hypertension; R07.9 Chest pain, unspecified